=== PATIENT | female | born 1950 | race Caucasian/White ===

== ENCOUNTER 2017-05-08 12:12 | Day surgery (SDC) | payer MEDICARE, OTHER ==
[~2017-05-08] VITALS: Ht 160 cm; Wt 58.1 kg
[~2017-05-08 12:12] MED LIST: SUMATRIPTAN SU100 MG PO
--- NOTE | 2017-05-08 14:02 | NUR ---
05/08/17 1402 Sharmila Pace 1743-PATIENT ARRIVED TO PACU ON 3L NC O2 SAT 100% PATIENT WEANED TO RA CO2 38. PATIENT REACTIVE EYES OPEN DENIES PAIN. ENCOURAGED TO PASS FLATUS. RR EVEN.
--- NOTE | 2017-05-10 10:07 | OR ---
[facility] [address], [place] [address] Signed DATE OF OPERATION: 05/08/2017 SURGEON: Aicha Butler MD PREOPERATIVE DIAGNOSIS: Surveillance colonoscopy, history of hyperplastic polyp of rectum 2006. POSTOPERATIVE DIAGNOSES: 1. Multiple arteriovenous malformations left colon. 2. Mild proctitis. PROCEDURE: 1. Total colonoscopy to cecum with biopsy of cecum and rectum. 2. Procurement Consultant excision of arteriovenous malformation x1. ANESTHESIA: Intravenous sedation, fentanyl 150 mcg versed 6 mg. INDICATION: A 66-year-old white woman, who is a patient Dr. Gautam and underwent colonoscopy by me in 2006 at which time she had hyperplastic polyp of the rectum. She is here for surveillance colonoscopy. She has no bleeding, diarrhea, or constipation problems. She has no family history of colon cancer that she is aware of. She is admitted to undergo colonoscopy to better assess for polyps or other abnormalities. Understands the risks of bleeding, infection, and perforation. FINDINGS: The prep was excellent. Complete colonoscopy was undertaken to the cecum without question. The ileocecal valve and appendiceal orifice were normal. There was mild melanosis of the cecum and mild proctitis of the low rectum. There were no polyps, no signs of diverticular change. She did have many arteriovenous malformations of the left colon and sigmoid, none of which were bleeding, one of which was biopsied to affirm the diagnosis. DESCRIPTION OF PROCEDURE: The patient was brought to the endoscopy suite and placed in lateral decubitus position given intravenous sedation to the point of slurred speech and nystagmus. Digital rectal examination was normal. An Olympus video colonoscope was passed in the rectum and manipulated throughout the Electronically Signed By: AICHA BUTLER MD 05/10/17 1007 PATIENT NAME: JORI DORAN OPERATIVE REPORT DATE OF : 48 REPORT #: [id number] PHYSICIAN: AICHA BUTLER MD PCP: Brett PAK MD REPORT IS CONFIDENTIAL AND NOT TO BE RELEASED WITHOUT AUTHORIZATION [facility] [address], [place] [address] Signed colon ultimately intubating the cecum itself. The ileocecal valve and appendiceal orifice were normal. 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 Scope was then carefully withdrawn on examination throughout undertaken showing no sign of polyps, but did show numerous small arteriovenous malformations of the left colon and sigmoid, one client relations representative lesion was excised. There was no untoward bleeding. Withdrawal of scope to the rectum allowed for retroflexed view, which did confirm some mild proctitis, not much and probably bowel prep related. Biopsies were obtained nevertheless. Scope was straightened, withdrawn, and removed and the patient was taken to recovery room in good condition. CONCLUSION DIAGNOSES: 1. 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 2. Mild proctitis. 3. 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 PLAN: 1. Recommend repeat colonoscopy in 10 years sooner if clinically indicated. 2. Follow up with Dr. Gautam as needed for usual medical issues. 3. Review pathology report, so biopsies already obtained. MD TEDDY Oliver/DAYA /[id number] cc: Jackie Gautam MD Copies: JACKIE GAUTAM MD ~ Electronically Signed By: AICHA BUTLER MD 05/10/17 1007 PATIENT NAME: JORI DORAN OPERATIVE REPORT DATE OF : 48 REPORT #: [id number] PHYSICIAN: AICHA BUTLER MD PCP: Brett PAK MD REPORT IS CONFIDENTIAL AND NOT TO BE RELEASED WITHOUT AUTHORIZATION
== END 2017-05-08 14:44 | disposition home or self-care (01) ==
LOC: DS 12:12 → OPS 12:12 → DS 13:00 → OPS 14:44
PROVIDERS: Surgery
PROC: 0DBN8ZX Excision of Sigmoid Colon, Via Natural or Artificial Opening Endoscopic, Diagnostic (ICD-10-PCS; 2017-05-08)
PROC: 0DBP8ZX Excision of Rectum, Via Natural or Artificial Opening Endoscopic, Diagnostic (ICD-10-PCS; 2017-05-08)
PROC: 0DBH8ZX Excision of Cecum, Via Natural or Artificial Opening Endoscopic, Diagnostic (ICD-10-PCS; principal; 2017-05-08 13:00)
DX: Z12.11 Encounter for screening for malignant neoplasm of colon (principal); K62.89 Other specified diseases of anus and rectum; Q27.33 Arteriovenous malformation of digestive system vessel; Z86.010 Personal history of colon polyps; Z98.890 Other specified postprocedural states
CPT/HCPCS: 88305; 99153; G0500; J2250; J3010; J7120